=== PATIENT | female | born 1960 | race Two or more races ===

== ENCOUNTER 2025-05-01 14:05 | Emergency (ER) | payer MEDICAID, SELFPAY ==
[2025-05-01 14:20] VITALS: BP 135/71; PULSE 105; RESP 18; TEMP 37.1; O2SAT 96; BMI 27.8
--- NOTE | 2025-05-01 14:26 | XR_ITS ---
Examination: CT abdomen and pelvis without contrast. Coronal 3-D reconstructions. Sagittal 2-D reconstructions. Date and time of exam:May 11, 2025 1605 hours INDICATIONS: Generalized abdominal pain and diarrhea beginning one week ago CTDI: vol (mGy): 8.49 DLP: (mGycm): 192 Technique: Axial images of the abdomen have been obtained, 3 mm slice thickness Intravenous contrast material has not been administered. Low dose protocols were performed. One or more of the following dose reduction techniques were used; automated exposure control, adjustment of the mA and/or KV according to patient size, use of iterative reconstruction technique. Findings: Left lateral lower hemithorax pleural calcifications No focal liver or splenic lesions No gallstones No pancreatic mass Fat-containing left adrenal nodule 33 mm No renal or ureteral calculi, no hydronephrosis Abdominal aortic calcification no aneurysmal dilatation Retroverted uterus Bladder intact Moderate osteopenia IMPRESSION: No renal or ureteral calculi, no hydronephrosis No bowel obstruction CT findings of appendicitis or diverticulitis
--- NOTE | 2025-05-01 14:28 | PD.EDNV ---
Nausea/Vomit./Diarrhea-RME/HPI General Chief complaint: Nausea/Vomiting/Diarrhea Stated complaint: Diarrhea X 7 years Time Seen by Provider: 05/01/25 14:10 Source: patient Arrival date/time: 05/01/25 14:05 64-year-old female with no known medical history presents to the emergency room with a chief complaint of diarrhea x 7 years, patient also states she is having some diffuse generalized abdominal pain that began 2 days ago. Mode of arrival: ambulatory Limitations: no limitations Related Data Allergies Allergy/AdvReac Type Severity Reaction Status Date / Time No Known Drug Allergies Allergy Verified 05/01/25 14:12 ED Exam General Limitations: Present no limitations Course Orders Category Date Time Status CT abdomen pelvis wo con Stat Exams 05/01/25 14:26 Ordered CBC Stat Lab 05/01/25 14:38 Completed CMP [Comprehensive Metabolic Panel] Stat Lab 05/01/25 14:38 Completed Lipase Stat Lab 05/01/25 14:38 Completed UA [Urinalysis] Stat Lab 05/01/25 15:06 Received Urine Culture Stat Lab 05/01/25 15:06 Received Vital Signs Vital signs: Vital Signs Temperature 98.7 F 05/01/25 14:20 Pulse Rate 105 H 05/01/25 14:20 Respiratory Rate 18 05/01/25 14:20 Blood Pressure 135/71 H 05/01/25 14:20 Pulse Oximetry (%) 96 05/01/25 14:20 Oxygen Delivery Method Room Air 05/01/25 14:20 Discharge Plan Prescriptions/Referrals Referrals: Regla Jauregui MD [Primary Care Provider] - In 1 week Patient/Caregiver Discharge Instructions Print Language: Luxembourger
[2025-05-01 15:11] LABS: Collection Type, Urine Clean Catch
[2025-05-01 15:12] LABS: Basophils # (Auto) 0.0 Thou/mm3 (0.0-0.2); Basophils % (Auto) 0 % (0-2.5); Eosinophils # (Auto) 0.0 Thou/mm3 (0.0-0.5); Eosinophils % (Auto) 0 % (0-10); Hematocrit 37.6 % (36.0-46.0); Hemoglobin 12.4 g/dL (12.0-16.0); Immature Granulocytes Auto 0.04 Thou/mm3 (0.00-0.00); Lymphocytes # (Auto) 0.6 Thou/mm3 (1.0-4.8); Lymphocytes % (Auto) 7 % (10-50); Mean Corpuscular HGB Conc 33.0 g/dl (31.0-37.0); Mean Corpuscular Hemoglobin 29.5 pg (25.0-35.0); Mean Corpuscular Volume 89 fL (80-100); Monocytes # (Auto) 0.3 Thou/mm3 (0.0-0.8); Monocytes % (Auto) 4 % (0-12); Neutrophils # (Auto) 6.9 Thou/mm3 (1.8-7.7); Neutrophils % (Auto) 88 % (37-80); Nucleated Red Blood Cell # 0.00 Thou/mm3 (0.00-0.00); Nucleated Red Blood Cell % 0 /100 WBC (0); Platelet Count 207 Thou/mm3 (140-440); RDW Standard Deviation 39.6 fL (36.4-46.3); Red Blood Count 4.21 Miln/mm3 (4.00-5.20); White Blood Count 7.8 Thou/mm3 (3.6-11.0)
[2025-05-01 15:32] LABS: Alanine Aminotransferase 18 U/L (10-49); Albumin, Serum 4.3 gm/dL (3.4-4.8); Albumin/Globulin Ratio 1.4 (1.2-2.2); Alkaline Phosphatase 140 U/L (46-116); Anion Gap 14 (7-16); Aspartate Amino Transferase 19 U/L (0-34); BUN/Creatinine Ratio 13 Ratio (12-20); Bilirubin,Total 1.1 mg/dL (0.3-1.2); Blood Urea Nitrogen 15 mg/dL (9-23); Calcium 9.2 mg/dL (8.3-10.6); Calcium (Corrected) 9.2 mg/dL (8.5-10.1); Carbon Dioxide 26.2 mMol/L (20.0-31.0); Chloride 97 mMol/L (98-107); Creatinine (Component) 1.2 mg/dL (0.6-1.3); Estimated Creatinine Clearance 44.8 mL/min (>60); Globulin 3.1 gm/dL (2.3-3.5); Lipase 47 U/L (12-53); Osmolality,Calculated 296 (275-295); Potassium 5.1 mMol/L (3.4-5.1); Sodium 137 mMol/L (136-145); Total Protein 7.4 gm/dL (5.7-8.2); eGFR 51 See Note
[2025-05-01 15:35] LABS: Glucose 495 mg/dL (74-106)
--- NOTE | 2025-05-01 15:45 | PD.EDRME ---
Rapid Medical Screening Exam RME Arrival date/time: 05/01/25 14:05 64-year-old female with no known medical history presents to the emergency room with a chief complaint of diarrhea x 7 years, patient also states she is having some diffuse generalized abdominal pain that began 2 days ago. I have greeted and performed a focused initial assessment of this patient. A comprehensive ED assessment and evaluation of the patient, analysis of all test results, and completion of the medical decision making process will be conducted by additional ED providers. Chief Complaint: Nausea/Vomiting/Diarrhea Time Seen by Provider: 05/01/25 14:10 Vital signs: Vital Signs Temperature 98.7 F 05/01/25 14:20 Pulse Rate 105 H 05/01/25 14:20 Respiratory Rate 18 05/01/25 14:20 Blood Pressure 135/71 H 05/01/25 14:20 Pulse Oximetry (%) 96 05/01/25 14:20 Oxygen Delivery Method Room Air 05/01/25 14:20 Vital signs reviewed by provider: Yes
[2025-05-01 15:46] LABS: Bacteria,Urine 3+; Bilirubin,Urine Negative (Negative); Blood,Urine 1+ (Negative); Budding Yeast,Urine Present; Color,Urine Lt-Yellow (Lt Yel-Yel); Glucose, Urine 4+ (Negative); Ketones,Urine 2+ (Negative); Leukocyte Esterase,Urine Positive (Negative); Nitrite,Urine Negative (Negative); PH,Urine 5.0 (5.0-7.0); Protein,Urine Trace (Neg - Trace); RBC,Urine 56 /hpf (0-3); Specific Gravity,Urine 1.031 (1.001-1.035); Squamous Epithelial Cell,Urine 34 /hpf (0-5); Urobilinogen,Urine Negative mg/dL (0.0-1.0); WBC,Urine 120 /hpf (0-5)
[2025-05-01 16:07] LABS: Clarity,Urine Cloudy (Clear/Hazy)
--- NOTE | 2025-05-01 19:17 | EDNOTE_ITS ---
Nausea/Vomit./Diarrhea-E/[facility] General Chief complaint: Nausea/Vomiting/Diarrhea Stated complaint: Diarrhea X 7 years Time Seen by Provider: 05/01/25 14:10 Arrival date/time: 05/01/25 14:05 E / HPI E / [facility] Narrative: 64-year-old female with known medical history of diabetes mellitus presents to the emergency room with a chief complaint of diarrhea x 7 years, patient also states she is having some diffuse generalized abdominal pain that began 2 days ago. Patient denies any fever denies any vomiting denies any other complaints. Patient was seen by PCP already and currently taking loperamide. Related Data Previous Rx's ?Medication ?Instructions ?Recorded ciprofloxacin HCl 500 mg tablet 500 mg PO BID #14 tabs 05/01/25 (Cipro) dicyclomine 20 mg tablet 20 mg PO TID PRN abdominal p ain 05/01/25 #30 tabs Allergies Allergy/AdvReac Type Severity Reaction Status Date / Time No Known Drug Allergies Allergy Verified 05/01/25 14:12 Review of Systems Review of Systems Narrative Review of Systems: Review of system reviewed and within normal limits except mentioned in HPI ED Exam Narrative Physical exam: VITAL SIGNS: Reviewed. GENERAL APPEARANCE: Alert and interactive, follows commands, no acute distress, HEAD AND FACE: Non-traumatic. ENT: PERRL, pink conjunctivitis, eyelid no trauma, Mucous membrane moist. NECK: Supple, nontender, no nuchal rigidity. CHEST: No tenderness, no crepitus, no paradoxical movement, no retractions. LUNGS: Clear, well ventilated, symmetric, no rales, no wheezing, no ronchi, no stridor, good breath sounds bilaterally. HEART: Regular rate, regular rhythm, no murmur, no gallops. ABDOMEN: Soft, positive bowel sounds, nondistended, no guarding, nontender, no rebound, no masses, RECTAL: Deferred. GENITAL: Deferred. NEUROLOGICAL: Gross motor function intact sensory function intact, Appropriate for age. MUSCULOSKELETAL: low back nontender, full range of motion. EXTREMITIES: Nontender, full range of motion. SKIN: Color pink, dry, no rash, no lacerations, no abrasions, no contusions. LYMPHATICS: Deferred. Course Quality Measures none Orders Category Date Time Status Bedside Blood Glucose NOW Care 05/01/25 17:03 Active IV [Insert IV] STAT Care 05/01/25 19:[address] abdomen pelvis wo con Stat Exams 05/01/25 14:26 Completed CBC Stat Lab 05/01/25 14:38 Completed CMP [Comprehensive Metabolic Panel] Stat Lab 05/01/25 14:38 Completed Lipase Stat Lab 05/01/25 14:38 Completed UA [Urinalysis] Stat Lab 05/01/25 15:06 Completed Urine Culture Stat Lab 05/01/25 15:06 Received Sodium Chloride 0.9% 1000 ml [Ns] 1,000 ml Med 05/01/25 19:11 Discontinued IV 999 mls/hr Sodium Chloride 0.9% 1000 ml [Ns] 1,000 ml Med 05/01/25 19:16 Discontinued IV 999 mls/hr cefTRIAXone/D5w 1gm IV premix [Rocephin/D5w 1gm IV Med 05/01/25 19:11 Discontinued premix] 1 gm in 50 ml IV X1 Vital Signs Vital signs: Vital Signs Temperature 98.7 F 05/01/25 14:20 Pulse Rate 105 H 05/01/25 14:20 Respiratory Rate 18 05/01/25 14:20 Blood Pressure 135/71 H 05/01/25 14:20 Pulse Oximetry (%) 96 05/01/25 14:20 Oxygen Delivery Method Room Air 05/01/25 14:20 Nausea/Vomiting/Diarrhea MDM Narrative MDM Narrative:: 64-year-old female with known medical history of diabetes mellitus presents to the emergency room with a chief complaint of diarrhea x 7 years, patient also states she is having some diffuse generalized abdominal pain that began 2 days ago. Patient denies any fever denies any vomiting denies any other complaints. Patient was seen by PCP already and currently taking loperamide. Patient's workup was significant for UTI. There is no sign of leukocytosis. Most patient blood sugar was noted to be 495 with no sign of DKA. CT scan of the abdomen pelvis showed No renal or ureteral calculi, no hydronephrosis No bowel obstruction CT findings of appendicitis or diverticulitis Patient received 2 L IV fluids, and suppression IV. Patient blood sugar was noted to be 356 prior to discharge. She told me that her abdominal pain is better. She is stable for discharge home Patient data External records reviewed:: None Clinical information provided by:: patient Social determinants that could affect healthcare access:: none Patient has the following chronic illnesses:: Hypertension, diabetes mellitus How is presenting disease/condition affected by chronic disease/condition?: exacerbated by Evaluation data The following diagnostics were reviewed and interpreted by me:: lab results and radiology exam(s) Lab and/or radiology exams considered but not ordered:: None Interpretation Summary: See results MDM Medications / Prescriptions Medications / Prescriptions considered but not ordered:: None Medication administrations:: Medication Administration History Discontinued Medications Ceftriaxone Sodium/Dextrose (Rocephin/D5w 1gm Iv Premix) 1 gm in 50 mls @ 100 mls/hr IV X1 ONE Stop: 05/01/25 19:40 Last Infusion: 05/01/25 19:57 Dose: Infused Documented By: Admin: 05/01/25 19:27 Dose: 100 mls/hr Documented By: THANIA Sodium Chloride (Ns) 1,000 mls @ 999 mls/hr IV .Q1H1M ONE Stop: 05/01/25 20:11 Last Infusion: 05/01/25 20:51 Dose: Infused Documented By: Admin: 05/01/25 19:27 Dose: 999 mls/hr Documented By: THANIA Sodium Chloride (Ns) 1,000 mls @ 999 mls/hr IV .Q1H1M ONE Stop: 05/01/25 20:16 Last Infusion: 05/01/25 20:52 Dose: Infused Documented By: Admin: 05/01/25 19:26 Dose: 999 mls/hr Documented By: THANIA IV fluids, ceftriaxone IV Consultations Consultation(s) initiated? (list below): No Diagnosis Nausea Differential Diagnosis: food poisoning, gastroenteritis and dehydration Most likely diagnosis given after review of the tests above:: UTI, gastroenteritis, hyperglycemia Admission Indicated Admission indicated?: not indicated Admission Request Was there a request for admission?: No Disposition Plan Disposition Plan: Discharge Discharge Attestation Discharge Attestation: The patient and all family members were given an opportunity to ask questions and understood the discharge instructions. Discharge instructions specifically effects, indications for sooner follow up or return to the emergency department, and the expected course of current diagnosis. Patient condition: Stable Discharge Plan Plan Patient Disposition: HOME (Self Care) Discharge Disposition comment: Stable Prescriptions/Referrals Prescriptions/Med Rec: New ciprofloxacin HCl [Cipro] 500 mg tablet 500 mg PO BID Qty: 14 0RF dicyclomine 20 mg tablet 20 mg PO TID PRN (Reason: abdominal pain) Qty: 30 0RF Referrals: Regla Jauregui MD [Primary Care Provider] - In 1 week Problem List Clinical Impression: Gastroenteritis, UTI (urinary tract infection), Hyperglycemia Patient/Caregiver Discharge Instructions Discharge Activity: activity as tolerated Education Materials: Understanding Urinary Tract ... Additional Instructions: Thank you for the opportunity for serving you today. You are stable for discharged . You are advised to: Follow-up with your PCP in 1 to 2 days Return to ED for worsening of symptoms Increase oral fluids Take medication as prescribed Print Language: English Stand Alone Forms: Tiffany Award Info., Patient Portal Info Letter
[2025-05-01 19:18] VITALS: BP 145/81; PULSE 98; RESP 18; TEMP 36.8; O2SAT 97
[2025-05-01] MEDS: SODIUM CHLORIDE 0.9% 1000 ML 1,000 ML 999 ML IV ×2 (19:26→19:27)
[2025-05-01] MEDS: cefTRIAXone/D5w 1gm IV premix 1 GM/50 ML BAG IV (19:27)
== END 2025-05-01 21:26 | disposition home or self-care (01) ==
PROVIDERS: Nurse Practitioner Family; Emergency Provider Emergency Medicine; PCP Family Medicine
DX: K52.9 Noninfective gastroenteritis and colitis, unspecified (principal); N39.0 Urinary tract infection, site not specified; E11.65 Type 2 diabetes mellitus with hyperglycemia
CPT/HCPCS: 36415; 74176; 80053; 81001; 83690; 85025; 87086; 96361; 96365; 99283; J0696; J7030